=== PATIENT | male | born 2005 | race Caucasian/White ===

== ENCOUNTER → 2024-09-02 09:18 | Outpatient (CLI) | payer OTHER, SELFPAY ==
--- NOTE | 2024-09-02 09:20 | DI.MRI.S_ITS ---
PROCEDURE: MR SHOULDER LT WO CON INDICATIONS: INSTABILITY IN LEFT SHOULDER TECHNIQUE: Noncontrast oblique coronal T2 fast spin echo with fat saturation, oblique sagittal T1 spin echo and T2 fast spin echo with fat saturation, axial T1 spin echo and T2 fast spin echo with fat saturation through the shoulder. COMPARISON: [facility] Outside Film, MR, MR SHOULDER LEFT WITH CONTRAST, 06/04/2024, 12:34. FINDINGS: Image quality: Excellent. Rotator cuff: The supraspinatus, and the infraspinatus tendon are unremarkable. The teres minor and the subscapularis are unremarkable. Bones and bursae: No significant degenerative changes of the acromioclavicular joint. Type 1 acromion. No os acromiale. No subacromial/subdeltoid bursitis. Marrow signal of the proximal humerus is normal for age. No focal chondral defect of the glenohumeral articulation. Capsule and soft tissues: Tear of the anterior inferior labrum (series 14, image 12). No paralabral cyst. The extra-articular and the intra-articular biceps tendon are unremarkable. Thickening of the inferior glenohumeral ligament, raising concern for adhesive capsulitis. Trace glenohumeral effusion. No intra-articular body. IMPRESSION: 1. Tear of the anterior inferior labrum. No paralabral cyst. 2. Findings suggestive of adhesive capsulitis. Dictated by: Madyson Sheets M.D. on 09/03/2024 at 16:35 Approved by: Madyson Sheets M.D. on 09/03/2024 at 16:45
== END ==
DX: S43.492A Other sprain of left shoulder joint, initial encounter (principal); M25.312 Other instability, left shoulder
CPT/HCPCS: 73221